=== PATIENT | female | born 1990 | race Caucasian/White ===

== ENCOUNTER 2016-11-09 10:41 | Inpatient (IN) | payer OTHER ==
[~2016-11-09] VITALS: Ht 167.6 cm; Wt 64.9 kg
[2016-11-09 11:10] VITALS: BP 107/60
[2016-11-09] MEDS ORDERED: 0.9 % SODIUM CHLORIDE 10 ML DISP.SYRIN. IV PRN ×2 (11:30→18:00)
[2016-11-09] MEDS ORDERED: LIDOCAINE 1% PF 30 ML VIAL. INJ PRN (11:30)
[2016-11-09] MEDS ORDERED: FENTANYL PF 100 MCG/2 ML VIAL. IV PRN ×2 (11:30)
[2016-11-09] MEDS ORDERED: TERBUTALINE 1 MG/ML VIAL. SQ PRN (11:30)
[2016-11-09] MEDS ORDERED: BUTORPHANOL 2 MG VIAL. IV PRN ×2 (11:30)
[2016-11-09] MEDS ORDERED: OXYTOCIN 30 UNIT/500 ML PREMIX 500 ML IV PRN ×2 (11:30→18:00)
[2016-11-09] MEDS ORDERED: PENICILLIN G K 5,000,000 UNIT in IV NORMAL SALINE 100ML 100 ML IV ONE (11:30)
[2016-11-09] MEDS: IV RINGERS,LACTATED 1000ML 1,000 ML IV SCH ×2 (11:49→13:42)
[2016-11-09 12:14] LABS: HEMATOCRIT 35.2 % (36.0-47.0); HEMOGLOBIN 11.7 g/dL (12.0-15.5); RED BLOOD COUNT 4.01 x10^6/uL (3.50-5.40); RED CELL DISTRIBUTION WIDTH 13.9 % (11.5-14.5); WHITE BLOOD COUNT 21.4 x10^3/uL (4.0-11.0)
[2016-11-09] MEDS ORDERED: PNV1TABL25 PO (12:38)
[2016-11-09 13:11] LABS: BARBITURATES NEG (NEG); BENZODIAZEPINES NEG (NEG); CANNABINOIDS NEG (NEG); COCAINE NEG (NEG); METHADONE NEG (NEG); OPIATES NEG (NEG); PHENCYCLIDINE NEG (NEG)
[2016-11-09] MEDS ORDERED: L&D EPIDURAL CASSETTE 100 ML EP ONE (13:13)
[2016-11-09] MEDS ORDERED: ROPIVacaine 0.2% IN 0.9%NACL PF 40 MG/20 ML DISP.SYRIN. ONE (13:13)
[2016-11-09 13:14] LABS: ETHANOL, URINE NEG (NEG)
[2016-11-09] MEDS ORDERED: PENICILLIN G K 2,500,000 UNIT in IV NORMAL SALINE 50ML 50 ML IV SCH (15:30)
--- NOTE | 2016-11-09 17:27 | PDOC1 ---
OB - History Hx of Present Care: Limited Care Ultrasounds: Normal mid trimester US Obstetrical Complications: None Medical Complications: None Other Concerns: non compliant and desires to adopt out Past Family/Social History * Past Medical, Surgical, Family and Obstetric Histories reviewed from chart. Rubella: Unknown RPR/VDRL: Unknown GBS Status: Unknown HBsAG: Unknown OB - Chief Complaint & HPI Date of Admission: Date of Admission: Nov 09, 2016 at 11:24 Chief Complaint/History : 3 Para: 2 EGA: 38 Reason for admission: active labor Admission Nurse Assessment Rev: Yes Problems: OB - Admission Exam Physical Exam Vitals: VS - Last 72 Hours, by Label Date Time Temp Pulse Resp B/P Pulse Ox O2 Delivery O2 Flow Rate FiO2 11/09/16 13:21 20 100 Room Air 11/09/16 12:23 20 98 Room Air 11/09/16 11:10 97.7 74 20 107/60 Room Air 97.7 HEENT: Normal Heart: Regular Rate Lungs: Clear Abdomen: Gravid, Non tender, Soft Extremities: Edema Reflexes: Normal Cervical Dilatation: 4cm Effacement: 75% Station: -2 Membranes: Intact Heart Rate: Normal Accelerations: Accelerations Present Decelerations: No decelerations Contractions on Admission: < 5 Minutes Apart Intensity: Firm Text A: 38 wks IUP GBS unknown Non compliant with PNC P: Admit for active labor. Start Pen G prophylaxis. MARISOL JOSEPH Jr, MD Nov 09, 2016 17:27
--- NOTE | 2016-11-09 17:53 | PDOC ---
VAGINAL DELIVERY DATE DATE: 11/09/16 TIME: 17:51 : 3 Para: 3 EGA: 38 VAGINAL DELIVERY: VTX VACCUM ASSISTED: No PLACENTA: Spontaneous 9/9 SEX: Male WEIGHT Weight [3010 gm ] Nuchal Cord: No Amniotic Fluid: Clear PAIN: Epidural EPISIOTOMY: No EXTENSION: No EBL 300 ml COMPLICATIONS none CONDITION pt. stable ADDITIONAL NOTES pt. stable Signs of Intrauterine Infectio: None Shoulder Dystocia: No Problems: MARISOL JOSEPH Jr, MD Nov 09, 2016 17:53
[2016-11-09] MEDS ORDERED: MAGNESIUM HYDROXIDE 2,400 MG/30 ML ORAL.SUSP. PO PRN (18:00)
[2016-11-09] MEDS ORDERED: ZOLPIDEM 5 MG TABLET. PO PRN (18:00)
[2016-11-09] MEDS ORDERED: PHENYLEPH/MINERAL OIL/PETROLAT RECTAL OINTMENT 28GM TUBE. RC PRN (18:00)
[2016-11-09] MEDS ORDERED: ACETAMINOPHEN 325 MG TABLET. PO PRN (18:00)
[2016-11-09] MEDS ORDERED: DIPHENHYDRAMINE HCL 25 MG CAPSULE PO PRN (18:00)
[2016-11-09] MEDS ORDERED: SIMETHICONE 80 MG TAB.CHEW PO PRN (18:00)
[2016-11-09] MEDS ORDERED: MAG HYDROX/AL HYDROX/SIMETH 30 ML ORAL.SUSP PO PRN (18:00)
[2016-11-09] MEDS ORDERED: HYDROCORTISONE 1% TOPICAL OINTMENT 30GM TUBE. TP PRN (18:00)
[2016-11-09] MEDS ORDERED: MMR per PROTOCOL. MC PRN (18:00)
[2016-11-09] MEDS ORDERED: BENZOCAINE 20% TOPICAL AEROSOL SPRAY 57GM CAN. TP PRN (18:00)
[2016-11-09 20:25] VITALS: BP 110/64
[2016-11-09 21:15] VITALS: BP 107/61
[2016-11-09] MEDS: DOCUSATE SODIUM 100 MG CAPSULE PO PRN (21:37)
[2016-11-09] MEDS: IBUPROFEN 600 MG TABLET. PO PRN (21:37)
[2016-11-10 01:20] VITALS: BP 99/53
[2016-11-10 04:45] VITALS: BP 94/50
[2016-11-10] MEDS: IBUPROFEN 600 MG TABLET. PO PRN (04:51)
[2016-11-10 06:09] LABS: BASO # 0.1 x10^3/uL (0.0-0.2); BASO % 0 % (0-3); EOS % 1 % (0-3); HEMOGLOBIN 11.1 g/dL (12.0-15.5); LYMPH # 3.9 x10^3/uL (1.0-4.8); LYMPH % 12 % (24-48); MEAN CORPUSCULAR HEMOGLOBIN 29 pg (25-35); MEAN CORPUSCULAR HGB CONC 34 g/dL (31-37); MEAN CORPUSCULAR VOLUME 87 fL (79-100); MONO % 4 % (0-9); NEUT % 82 % (31-73); PLATELET COUNT 243 x10^3/uL (140-400); RED CELL DISTRIBUTION WIDTH 13.8 % (11.5-14.5); WHITE BLOOD COUNT 31.8 x10^3/uL (4.0-11.0)
--- NOTE | 2016-11-10 07:58 | PDOC ---
OB Progress Note Date of Service 11/10/16 Time of Evaluation 0755 Notes Pt. feeling well. Pain controlled. Lochia minimal. Bottle feeding. Pt. unsure about adoption at this time. Lab Laboratory Tests Test 11/09/16 12:00 11/10/16 05:30 White Blood Count 21.4x10^3/uL (4.0-11.0) 31.8x10^3/uL (4.0-11.0) Red Blood Count 4.01x10^6/uL (3.50-5.40) 3.80x10^6/uL (3.50-5.40) Hemoglobin 11.7g/dL (12.0-15.5) 11.1g/dL (12.0-15.5) Hematocrit 35.2% (36.0-47.0) 33.0% (36.0-47.0) Mean Corpuscular Volume 88fL (79-100) 87fL (79-100) Mean Corpuscular Hemoglobin 29pg (25-35) 29pg (25-35) Mean Corpuscular Hemoglobin Concent 33g/dL (31-37) 34g/dL (31-37) Red Cell Distribution Width 13.9% (11.5-14.5) 13.8% (11.5-14.5) Platelet Count 237x10^3/uL (140-400) 243x10^3/uL (140-400) Urine Opiates Screen Neg (NEG) Urine Methadone Screen Neg (NEG) Urine Barbiturates Neg (NEG) Urine Phencyclidine Screen Neg (NEG) Urine Amphetamine/Methamphetamine Neg (NEG) Urine Benzodiazepines Screen Neg (NEG) Urine Cocaine Screen Neg (NEG) Urine Cannabinoids Screen Neg (NEG) Urine Ethyl Alcohol Neg (NEG) RPR Titer Additional Testing Non reactive (Non Reactive) Neutrophils (%) (Auto) 82% (31-73) Lymphocytes (%) (Auto) 12% (24-48) Monocytes (%) (Auto) 4% (0-9) Eosinophils (%) (Auto) 1% (0-3) Basophils (%) (Auto) 0% (0-3) Neutrophils # (Auto) 26.2x10^3uL (1.8-7.7) Lymphocytes # (Auto) 3.9x10^3/uL (1.0-4.8) Monocytes # (Auto) 1.4x10^3/uL (0.0-1.1) Eosinophils # (Auto) 0.3x10^3/uL (0.0-0.7) Basophils # (Auto) 0.1x10^3/uL (0.0-0.2) Laboratory Tests Test 11/09/16 12:00 11/10/16 05:30 White Blood Count 21.4x10^3/uL (4.0-11.0) 31.8x10^3/uL (4.0-11.0) Red Blood Count 4.01x10^6/uL (3.50-5.40) 3.80x10^6/uL (3.50-5.40) Hemoglobin 11.7g/dL (12.0-15.5) 11.1g/dL (12.0-15.5) Hematocrit 35.2% (36.0-47.0) 33.0% (36.0-47.0) Mean Corpuscular Volume 88fL (79-100) 87fL (79-100) Mean Corpuscular Hemoglobin 29pg (25-35) 29pg (25-35) Mean Corpuscular Hemoglobin Concent 33g/dL (31-37) 34g/dL (31-37) Red Cell Distribution Width 13.9% (11.5-14.5) 13.8% (11.5-14.5) Platelet Count 237x10^3/uL (140-400) 243x10^3/uL (140-400) Urine Opiates Screen Neg (NEG) Urine Methadone Screen Neg (NEG) Urine Barbiturates Neg (NEG) Urine Phencyclidine Screen Neg (NEG) Urine Amphetamine/Methamphetamine Neg (NEG) Urine Benzodiazepines Screen Neg (NEG) Urine Cocaine Screen Neg (NEG) Urine Cannabinoids Screen Neg (NEG) Urine Ethyl Alcohol Neg (NEG) RPR Titer Additional Testing Non reactive (Non Reactive) Neutrophils (%) (Auto) 82% (31-73) Lymphocytes (%) (Auto) 12% (24-48) Monocytes (%) (Auto) 4% (0-9) Eosinophils (%) (Auto) 1% (0-3) Basophils (%) (Auto) 0% (0-3) Neutrophils # (Auto) 26.2x10^3uL (1.8-7.7) Lymphocytes # (Auto) 3.9x10^3/uL (1.0-4.8) Monocytes # (Auto) 1.4x10^3/uL (0.0-1.1) Eosinophils # (Auto) 0.3x10^3/uL (0.0-0.7) Basophils # (Auto) 0.1x10^3/uL (0.0-0.2) Medications Current Medications Sodium Chloride 3 ml 3 ml QSHIFT PRN IV AFTER MEDS AND BLOOD DRAWS; Start 11/09 at 11:30 Lactated Ringer's (Iv Lactated Ringers) 1,000 ml @ 125 mls/hr Q8H IV Last administered on 11/09/16 13:42; Start 11/09/16 at 11:19 Butorphanol Tartrate (Stadol) 1 mg PRN Q1HR PRN IV mild to moderate labor pain ; Start 11/09/16 at 11:30 Butorphanol Tartrate (Stadol) 2 mg PRN Q1HR PRN IV Severe labor pain; Start at 11:30 Fentanyl Citrate (Fentanyl 2ml Vial) 50 mcg PRN Q30MIN PRN IV Mild to moderate pain Last administered on 11/09/16 12:23; Start 11/09/16 at 11:30 Fentanyl Citrate (Fentanyl 2ml Vial) 100 mcg PRN Q30MIN PRN IV Severe pain; Start 11/09/16 at 11:30 Terbutaline Sulfate (Brethine) 0.25 mg 1X PRN PRN SQ SEE COMMENTS; Start at 11:30; Stop 11/10/16 at 11:29 Lidocaine HCl 30 ml 30 ml 1X PRN PRN INJ SEE COMMENTS; Start 11/09/16 at 11:30 ; Stop 11/11/16 at 11:29 Oxytocin/Sodium Chloride (Oxytocin Premix Infusion) 500 ml @ 0 mls/hr CONT PRN PRN IV Post delivery bleeding; Start 11/09/16 at 11:30 Ibuprofen 600 mg 600 mg PRN Q6HRS PRN PO PAIN Last administered on 11/10/16 04 :51; Start 11/09/16 at 11:30 Penicillin G Potassium [id number] unit/Sodium Chloride 100 ml @ 100 mls/hr 1X ONCE IV Last administered on 11/09/16 11:48; Start 11/09/16 at 11:30; Stop at 12:29; Status DC Penicillin G Potassium [id number] unit/Sodium Chloride 50 ml @ 100 mls/hr Q4H IV Last administered on 11/09/16 16:04; Start 11/09/16 at 15:30; Stop 11/10/16 at 04:49; Status DC Ropivacaine/ Fentanyl/NS (Fjobclwr-Qazxa-CN 3 Mcg-0.1%) 100 ml @ As Directed STK-MED ONCE EP Last administered on 11/09/16 13:21; Start 11/09/16 at 13:13; Stop 11/09/16 at 13:14; Status DC Ropivacaine 40 mg STK-MED ONCE .ROUTE Last administered on 11/09/16 13:20; Start 11/09/16 at 13:13; Stop 11/09/16 at 13:14; Status DC Sodium Chloride 10 ml 10 ml QSHIFT PRN IV AFTER MEDS AND BLOOD DRAWS Last administered on 11/10/16 04:52; Start 11/09/16 at 18:00 Oxytocin/Sodium Chloride (Oxytocin Premix Infusion) 500 ml @ 62.5 mls/hr CONT PRN IV SEE I/O RECORD; Start 11/09/16 at 18:00; Stop 11/10/16 at 01:59; Status DC Acetaminophen (Tylenol) 650 mg PRN Q6HRS PRN PO MILD PAIN / TEMP; Start at 18:00 Ibuprofen (Motrin) 800 mg PRN Q8HRS PRN PO INFLAMMATION/PAIN PREVENTION; Start 11/09/16 at 18:00 Docusate Sodium (Colace) 100 mg PRN BID PRN PO CONSTIPATION Last administered on 11/09/16 21:37; Start 11/09/16 at 18:00 Magnesium Hydroxide (Milk Of Magnesia) 2,400 mg PRN DAILY PRN PO CONSTIPATION; Start 11/09/16 at 18:00 Al Hydroxide/Mg Hydroxide (Mylanta Plus Xs) 30 ml PRN Q4HRS PRN PO HEARTBURN / GAS; Start 11/09/16 at 18:00 Simethicone (Gas-X) 80 mg PRN AFTMEALHC PRN PO GAS / BLOATING; Start 11/09/16 at 18:00 Diphenhydramine HCl (Benadryl) 25 mg PRN Q6HRS PRN PO ITCHING; Start 11/09/16 at 18:00 Benzocaine (Americaine) 1 spray PRN QID PRN TP TOPICAL PAIN; Start 11/09/16 at 18:00 Phenyleph/Shark Oil/Min Oil/Petrol (Preparation H) 1 erin PRN QID PRN RC RECTAL PAIN; Start 11/09/16 at 18:00 Hydrocortisone (Cortaid) 1 erin PRN QID PRN TP PERINEAL PAIN; Start 11/09/16 at 18:00 Ferrous Sulfate (Feosol) 325 mg BIDWMEALS PO ; Start 11/10/16 at 08:00 Zolpidem Tartrate (Ambien) 5 mg PRN QHS PRN PO INSOMNIA, MAY REPEAT X1; Start 11/09/16 at 18:00 Info (Do NOT chart on this placeholder) 1 ea 1X PRN PRN MC SEE COMMENTS; Start 11/09/16 at 18:00 Info (Do NOT chart on this placeholder) 1 ea 1X PRN PRN MC SEE COMMENTS; Start 11/09/16 at 18:00 Oxycodone/ Acetaminophen (Percocet 5/325) 2 tab PRN Q4HRS PRN PO MODERATE PAIN , SEVERE PAIN; Start 11/09/16 at 18:00 Active Scripts Active Reported Tablet (Pnv Cmb#95/Ferrous Fumarate/Fa) 1 Each Tablet 1 Tab PO DAILY Exam Abd: soft, non tender, fundus firm Assessment PPD#1 s/p Plan of Care: Continue current Tx, Mgmt MARISOL JOSEPH Jr, MD Nov 10, 2016 07:58
[2016-11-10] MEDS ORDERED: FERROUS SULFATE 325 MG TABLET PO SCH (08:00)
[2016-11-10] MEDS: DOCUSATE SODIUM 100 MG CAPSULE PO PRN ×2 (09:04→21:29)
[2016-11-10] MEDS: OXYCODONE/APAP 5/325 TABLET. PO PRN ×2 (09:04→21:29)
[2016-11-10 09:59] LABS: PLT ESTIMATE ADEQUATE (ADEQUATE)
[2016-11-10 10:02] LABS: ANISOCYTOSIS SLIGHT
[2016-11-10 11:05] VITALS: BP 99/50
[2016-11-10] MEDS: IBUPROFEN 800 MG TABLET. PO PRN (15:13)
[2016-11-10 15:20] VITALS: BP 94/53
[2016-11-10 18:09] VITALS: BP 99/52
[2016-11-10 21:25] VITALS: BP 95/60
[2016-11-11 05:25] VITALS: BP 96/51
[2016-11-11] MEDS: IBUPROFEN 800 MG TABLET. PO PRN ×2 (05:49→15:36)
[2016-11-11 12:37] VITALS: BP 96/55
--- NOTE | 2016-11-11 14:26 | PDOC ---
OB Progress Note Date of Service 11/11/16 Time of Evaluation 1425 Notes Pt. feeling well. No complaints. Lab Laboratory Tests Test 11/10/16 05:30 White Blood Count 31.8x10^3/uL (4.0-11.0) Red Blood Count 3.80x10^6/uL (3.50-5.40) Hemoglobin 11.1g/dL (12.0-15.5) Hematocrit 33.0% (36.0-47.0) Mean Corpuscular Volume 87fL (79-100) Mean Corpuscular Hemoglobin 29pg (25-35) Mean Corpuscular Hemoglobin Concent 34g/dL (31-37) Red Cell Distribution Width 13.8% (11.5-14.5) Platelet Count 243x10^3/uL (140-400) Neutrophils (%) (Auto) 82% (31-73) Lymphocytes (%) (Auto) 12% (24-48) Monocytes (%) (Auto) 4% (0-9) Eosinophils (%) (Auto) 1% (0-3) Basophils (%) (Auto) 0% (0-3) Neutrophils # (Auto) 26.2x10^3uL (1.8-7.7) Lymphocytes # (Auto) 3.9x10^3/uL (1.0-4.8) Monocytes # (Auto) 1.4x10^3/uL (0.0-1.1) Eosinophils # (Auto) 0.3x10^3/uL (0.0-0.7) Basophils # (Auto) 0.1x10^3/uL (0.0-0.2) Segmented Neutrophils % 87% (35-66) Lymphocytes % 11% (24-48) Monocytes % 2% (0-10) Platelet Estimate Adequate (ADEQUATE) Anisocytosis Slight Medications Current Medications Sodium Chloride 3 ml 3 ml QSHIFT PRN IV AFTER MEDS AND BLOOD DRAWS; Start 11/09 at 11:30 Lactated Ringer's (Iv Lactated Ringers) 1,000 ml @ 125 mls/hr Q8H IV Last administered on 11/09/16t 13:42; Start 11/09/16 at 11:19 Butorphanol Tartrate (Stadol) 1 mg PRN Q1HR PRN IV mild to moderate labor pain ; Start 11/09/16 at 11:30 Butorphanol Tartrate (Stadol) 2 mg PRN Q1HR PRN IV Severe labor pain; Start at 11:30 Fentanyl Citrate (Fentanyl 2ml Vial) 50 mcg PRN Q30MIN PRN IV Mild to moderate pain Last administered on 11/09/16 12:23; Start 11/09/16 at 11:30 Fentanyl Citrate (Fentanyl 2ml Vial) 100 mcg PRN Q30MIN PRN IV Severe pain; Start 11/09/16 at 11:30 Terbutaline Sulfate (Brethine) 0.25 mg 1X PRN PRN SQ SEE COMMENTS; Start at 11:30; Stop 11/10/16 at 11:29; Status DC Lidocaine HCl 30 ml 30 ml 1X PRN PRN INJ SEE COMMENTS; Start 11/09/16 at 11:30 ; Stop 11/11/16 at 11:29; Status DC Oxytocin/Sodium Chloride (Oxytocin Premix Infusion) 500 ml @ 0 mls/hr CONT PRN PRN IV Post delivery bleeding; Start 11/09/16 at 11:30 Ibuprofen 600 mg 600 mg PRN Q6HRS PRN PO PAIN Last administered on 11/10/16 04 :51; Start 11/09/16 at 11:30 Penicillin G Potassium [id number] unit/Sodium Chloride 100 ml @ 100 mls/hr 1X ONCE IV Last administered on 11/09/16 11:48; Start 11/09/16 at 11:30; Stop at 12:29; Status DC Penicillin G Potassium [id number] unit/Sodium Chloride 50 ml @ 100 mls/hr Q4H IV Last administered on 11/09/16 16:04; Start 11/09/16 at 15:30; Stop 11/10/16 at 04:49; Status DC Ropivacaine/ Fentanyl/NS (Gtjmixkg-Awjau-MQ 3 Mcg-0.1%) 100 ml @ As Directed STK-MED ONCE EP Last administered on 11/09/16 13:21; Start 11/09/16 at 13:13; Stop 11/09/16 at 13:14; Status DC Ropivacaine 40 mg STK-MED ONCE .ROUTE Last administered on 11/09/16 13:20; Start 11/09/16 at 13:13; Stop 11/09/16 at 13:14; Status DC Sodium Chloride 10 ml 10 ml QSHIFT PRN IV AFTER MEDS AND BLOOD DRAWS Last administered on 11/10/16 04:52; Start 11/09/16 at 18:00 Oxytocin/Sodium Chloride (Oxytocin Premix Infusion) 500 ml @ 62.5 mls/hr CONT PRN IV SEE I/O RECORD; Start 11/09/16 at 18:00; Stop 11/10/16 at 01:59; Status DC Acetaminophen (Tylenol) 650 mg PRN Q6HRS PRN PO MILD PAIN / TEMP; Start at 18:00 Ibuprofen (Motrin) 800 mg PRN Q8HRS PRN PO INFLAMMATION/PAIN PREVENTION Last administered on 11/11/16 05:49; Start 11/09/16 at 18:00 Docusate Sodium (Colace) 100 mg PRN BID PRN PO CONSTIPATION Last administered on 11/10/16 21:29; Start 11/09/16 at 18:00 Magnesium Hydroxide (Milk Of Magnesia) 2,400 mg PRN DAILY PRN PO CONSTIPATION; Start 11/09/16 at 18:00 Al Hydroxide/Mg Hydroxide (Mylanta Plus Xs) 30 ml PRN Q4HRS PRN PO HEARTBURN / GAS; Start 11/09/16 at 18:00 Simethicone (Gas-X) 80 mg PRN AFTMEALHC PRN PO GAS / BLOATING Last administered on 11/10/16 21:29; Start 11/09/16 at 18:00 Diphenhydramine HCl (Benadryl) 25 mg PRN Q6HRS PRN PO ITCHING; Start 11/09/16 at 18:00 Benzocaine (Americaine) 1 spray PRN QID PRN TP TOPICAL PAIN; Start 11/09/16 at 18:00 Phenyleph/Shark Oil/Min Oil/Petrol (Preparation H) 1 erin PRN QID PRN RC RECTAL PAIN; Start 11/09/16 at 18:00 Hydrocortisone (Cortaid) 1 erin PRN QID PRN TP PERINEAL PAIN; Start 11/09/16 at 18:00 Ferrous Sulfate (Feosol) 325 mg BIDWMEALS PO Last administered on 11/10/16 08: 00; Start 11/10/16 at 08:00 Zolpidem Tartrate (Ambien) 5 mg PRN QHS PRN PO INSOMNIA, MAY REPEAT X1; Start 11/09/16 at 18:00 Info (Do NOT chart on this placeholder) 1 ea 1X PRN PRN MC SEE COMMENTS; Start 11/09/16 at 18:00 Info (Do NOT chart on this placeholder) 1 ea 1X PRN PRN MC SEE COMMENTS; Start 11/09/16 at 18:00 Oxycodone/ Acetaminophen (Percocet 5/325) 2 tab PRN Q4HRS PRN PO MODERATE PAIN , SEVERE PAIN Last administered on 11/10/16t 21:29; Start 11/09/16 at 18:00 Active Scripts Active Reported Tablet (Pnv Cmb#95/Ferrous Fumarate/Fa) 1 Each Tablet 1 Tab PO DAILY Exam Abd: soft, non tender, fundus firm Assessment PPD#2 s/p Plan of Care: See new orders (D/ c home.) MARISOL JOSEPH Jr, MD Nov 11, 2016 14:26
[2016-11-11] MEDS ORDERED: IBUP-1060 PO (14:27)
--- NOTE | 2016-11-11 14:27 | DISCH ---
DISCHARGE INSTRUCTIONS Condition on Discharge Condition on Discharge: Stable Activity After Discharge Activity Instructions for Disc: Activity as tolerated Lifting Instructions after Dis: No heavy lifting Driving Instructions after Dis: Do not drive today Diet after Discharge Diet after Discharge: Regular Contacting the DRJhony after DC Call your doctor for: Concerns you may have Follow-Up Follow up with: Dr. Valdez in 6 weeks. MARISOL VALDEZ Jr, MD Nov 11, 2016 14:27
[2016-11-11 17:00] VITALS: BP 95/50
[2016-11-11] MEDS: OXYCODONE/APAP 5/325 TABLET. PO PRN (17:15)
[2016-11-11] MEDS: DOCUSATE SODIUM 100 MG CAPSULE PO PRN (17:23)
== END 2016-11-11 18:59 | disposition home or self-care (01) | DRG 775 ==
LOC: 3 SO LND 10:41 → OBSVTOIN 11:24 → EEVIPCON 11:24 → 3 NORTH 21:15
PROVIDERS: ADMIT Obstetrics & Gynecology; ATTEND Obstetrics & Gynecology
PROC: 10E0XZZ Delivery of Products of Conception, External Approach (ICD-10-PCS; principal; 2016-11-09)
PROC: 3E0S3CZ (ICD-10-PCS; 2016-11-09)
PROC: 00HU33Z Insertion of Infusion Device into Spinal Canal, Percutaneous Approach (ICD-10-PCS; 2016-11-09)
DX: O80 Encounter for full-term uncomplicated delivery (principal); Z3A.38 38 weeks gestation of pregnancy; Z37.0 Single live birth; Z91.19 Patient's noncompliance with other medical treatment and regimen
CPT/HCPCS: 36415; 85007; 85027; 86593; 86850; 86900; 86901; G0379; G0481; J2540; J2795; J3010; J7120

== ENCOUNTER 2019-08-11 18:12 | Emergency (ER) | payer SELFPAY ==
[~2019-08-11] VITALS: Ht 167.6 cm; Wt 63.5 kg
[~2019-08-11 18:12] MED LIST: IBUP-1060 PO; PNV1TABL25 PO
[2019-08-11 18:55] VITALS: BP 114/65
--- NOTE | 2019-08-11 19:22 | PHYS DOC ---
Past Medical History Past Medical History: Anemia, Asthma Additional Past Medical Histor: Mood Disorder Past Surgical History: No Surgical History Smoking: Cigarettes, Less than 1pk/day Alcohol Use: Occasionally Drug Use: None Adult General Chief Complaint Chief Complaint: ANKLE PROBLEM HPI HPI Patient is a 29 year old female who presents to the emergency department with complaints of left ankle pain for the last 2 weeks. Patient denies any known injury. She currently rates pain a 6 out of 10 on the pain scale, the pain increases with certain movements and position changes. She denies any numbness, tingling, or weakness. Review of Systems Review of Systems Constitutional: Denies fever or chills [] Musculoskeletal: See history of present illness Integument: Denies rash, bruising, or skin lesions [] Neurologic: Denies headache, focal weakness or sensory changes [] Complete systems were reviewed and found to be within normal limits, except as documented in this note. Allergies Allergies Allergies Coded Allergies Type Severity Reaction Last Updated Verified No Known Drug Allergies 06/21/14 No Physical Exam Physical Exam Constitutional: Well developed, well nourished, no acute distress, non-toxic appearance. [] HENT: Normocephalic, atraumatic, bilateral external ears normal, nose normal. [] Eyes: PERRLA, EOMI, conjunctiva normal, no discharge. [] Neck: Normal range of motion, no stridor. [] Cardiovascular:Heart rate regular rhythm Lungs & Thorax: Respirations even and unlabored, no retractions, no respiratory distress Skin: Warm, dry, no erythema, no rash, no bruising. [] Extremities: L ankle: No bony TTP, no obvious deformity, no cyanosis, no clubbing, ROM limited due to pain, no edema. [] Neurologic: Alert and oriented X 3, normal motor function, normal sensory fun ction, no focal deficits noted. [] Psychologic: Affect normal, judgement normal, mood normal. [] Current Patient Data Vital Signs Vital Signs Date Time Temp Pulse Resp B/P (MAP) Pulse Ox O2 Delivery O2 Flow Rate FiO2 08/11/19 18:55 98.5 85 18 114/65 (81) 98 Room Air 98.5 Lab Values Laboratory Tests Test 08/11/19 21:24 POC Urine HCG, Qualitative Hcg negative (Negative) EKG EKG [] Radiology/Procedures Radiology/Procedures PROCEDURE: ANKLE LEFT 3V Exam: Ankle 3 views INDICATION: Left ankle pain TECHNIQUE: Frontal, lateral and oblique views of the left ankle Comparisons: None FINDINGS: Bone mineralization is normal. No acute or healed fractures. Soft tissues are unremarkable. Joint spaces are well-maintained. IMPRESSION: No acute osseous abnormality.[] Course & Med Decision Making Course & Med Decision Making Pertinent Labs and Imaging studies reviewed. (See chart for details) [] Dragon Disclaimer Dragon Disclaimer This electronic medical record was generated, in whole or in part, using a voice recognition dictation system. Departure Departure Impression: Primary Impression: Left ankle pain Disposition: HOME, SELF-CARE Condition: STABLE Referrals: NO PCP (PCP) Patient Instructions: Ankle Pain Additional Instructions: Tylenol or ibuprofen as needed for pain. Follow up with your primary care doctor if symptoms persist, wear the gustabo wrap as needed for comfort. Return to the ER if symptoms worsen. Splinting Splinting : Location: L ankle Pre-Proc Neuro Vasc Exam: normal Post-Proc Neuro Vasc Exam: normal, unchanged from pre-exam Progress An gustabo wrap was applied to the left ankle Problem Qualifiers Primary Impression: Left ankle pain Chronicity: acute Qualified Codes: M25.572 - Pain in left ankle and joints of left foot C[employer] Aug 11, 2019 19:22
--- NOTE | 2019-08-11 22:54 | RAD ---
Exam: Ankle 3 views INDICATION: Left ankle pain TECHNIQUE: Frontal, lateral and oblique views of the left ankle Comparisons: None FINDINGS: Bone mineralization is normal. No acute or healed fractures. Soft tissues are unremarkable. Joint spaces are well-maintained. IMPRESSION: No acute osseous abnormality. Electronically signed by: Anuradha Colvin MD (08/11/2019 10:51 PM) [facility]
== END 2019-08-11 23:00 | disposition home or self-care (01) ==
LOC: ER 18:12
DX: M25.572 Pain in left ankle and joints of left foot (principal); J45.909 Unspecified asthma, uncomplicated; F17.210 Nicotine dependence, cigarettes, uncomplicated
CPT/HCPCS: 73610; 81025; 99284; 99285-25

== ENCOUNTER 2019-08-30 13:01 | Emergency (ER) | payer SELFPAY ==
[~2019-08-30] VITALS: Ht 167.6 cm; Wt 63.5 kg
[2019-08-30] MEDS ORDERED: IV NORMAL SALINE 1000ML BAG 1,000 ML IV SCH (13:51)
[2019-08-30] MEDS ORDERED: ONDANSETRON PF 4 MG/2 ML VIAL. IV ONE (14:00)
[2019-08-30 14:11] LABS: BASO # 0.1 x10^3/uL (0.0-0.2); BASO % 1 % (0-3); EOS # 0.8 x10^3/uL (0.0-0.7); EOS % 8 % (0-3); HEMATOCRIT 43.7 % (36.0-47.0); LYMPH # 1.7 x10^3/uL (1.0-4.8); LYMPH % 17 % (24-48); MEAN CORPUSCULAR HEMOGLOBIN 29 pg (25-35); MEAN CORPUSCULAR HGB CONC 34 g/dL (31-37); MEAN CORPUSCULAR VOLUME 86 fL (79-100); MONO # 0.6 x10^3/uL (0.0-1.1); MONO % 6 % (0-9); NEUT # 6.9 x10^3/uL (1.8-7.7); NEUT % 68 % (31-73); PLATELET COUNT 334 x10^3/uL (140-400); RED BLOOD COUNT 5.11 x10^6/uL (3.50-5.40); RED CELL DISTRIBUTION WIDTH 13.8 % (11.5-14.5); WHITE BLOOD COUNT 10.1 x10^3/uL (4.0-11.0)
[2019-08-30 14:25] LABS: CALCIUM 9.2 mg/dL (8.5-10.1); CREATININE 0.9 mg/dL (0.6-1.0)
[2019-08-30 14:26] LABS: POTASSIUM 4.3 mmol/L (3.5-5.1)
[2019-08-30 14:53] LABS: ALBUMIN 4.2 g/dL (3.4-5.0); ALBUMIN/GLOBULIN RATIO 1.2 (1.0-1.7); TOTAL BILIRUBIN 0.4 mg/dL (0.2-1.0); TOTAL PROTEIN 7.8 g/dL (6.4-8.2)
[2019-08-30] MEDS ORDERED: LOPERAMIDE 2 MG CAPSULE PO STA (14:56)
[2019-08-30 15:00] VITALS: BP 113/74
[2019-08-30] MEDS ORDERED: ONDA4TAB7 PO (15:07)
--- NOTE | 2019-08-30 15:11 | PHYS DOC ---
Past Medical History Past Medical History: Anemia, Asthma Additional Past Medical Histor: Mood Disorder Past Surgical History: No Surgical History Alcohol Use: Occasionally Drug Use: Methamphetamine Adult General Chief Complaint Chief Complaint: NAUSEA/VOMITING/DIARRHA HPI HPI Patient is a 29 year old female with history of ADD who presents by EMS with complaint of nausea and diarrhea. Patient complaining of constant nausea and frequent episodes of nonbloody diarrhea since yesterday without abdominal pain, fever and chills, sick contact. Patient states she thinks she had the bad food. Patient states she was not able to eat and having a urine output since yesterday. Patient had recent visit to [facility] for mental condition. She denies , suicidal or homicidal ideation, hallucination. Review of Systems Review of Systems Constitutional: Denies fever or chills [] Eyes: Denies change in visual acuity, redness, or eye pain [] HENT: Denies nasal congestion or sore throat [] Respiratory: Denies cough or shortness of breath [] Cardiovascular: No additional information not addressed in HPI [] GI: Denies abdominal pain, vomiting, bloody stools, reports nausea and diarrhea [] : Denies dysuria or hematuria [] Musculoskeletal: Denies back pain or joint pain [] Integument: Denies rash or skin lesions [] Neurologic: Denies headache, focal weakness or sensory changes [] Endocrine: Denies polyuria or polydipsia [] All other systems were reviewed and found to be within normal limits, except as documented in this note. Current Medications Current Medications Current Medications Medications (Trade) Dose Ordered Sig/Cholo Start Time Stop Time Status Last Admin Dose Admin Loperamide HCl (Imodium) 2 mg 1X STAT 08/30/19 14:56 08/30/19 14:59 DC 08/30/19 15:05 2 MG Ondansetron HCl (Zofran) 4 mg 1X ONCE 08/30/19 14:00 08/30/19 14:01 DC 08/30/19 14:18 4 MG Sodium Chloride 1,000 ml @ 1,000 mls/hr Q1H 08/30/19 13:51 08/30/19 14:50 DC 08/30/19 14:18 1,000 MLS/HR Allergies Allergies Allergies Coded Allergies Type Severity Reaction Last Updated Verified No Known Drug Allergies 06/21/14 No Physical Exam Physical Exam Constitutional: Well nourished, no acute distress, non-toxic appearance. [] HENT: Normocephalic, atraumatic, bilateral external ears normal, oropharynx moist, no oral exudates, nose normal. [] Eyes: PERRLA, EOMI, conjunctiva normal, no discharge. [] Neck: Normal range of motion, no tenderness, supple, no stridor. [] Cardiovascular:Heart rate regular rhythm, no murmur [] Lungs & Thorax: Bilateral breath sounds clear to auscultation [] Abdomen: Bowel sounds normal, soft, no tenderness, no masses, no pulsatile masses. [] Skin: Warm, dry, no erythema, no rash. [] Back: No tenderness, no CVA tenderness. [] Extremities: No tenderness, no cyanosis, no clubbing, ROM intact, no edema. [] Neurologic: Alert and oriented X 3, normal motor function, normal sensory function, no focal deficits noted. [] Psychologic: Affect anxious, mood normal. [] Current Patient Data Vital Signs Vital Signs Date Time Temp Pulse Resp B/P (MAP) Pulse Ox O2 Delivery O2 Flow Rate FiO2 08/30/19 15:00 79 15 113/74 (87) 99 Room Air 08/30/19 13:02 98.1 98.1 Lab Values Laboratory Tests Test 08/30/19 13:55 White Blood Count 10.1 x10^3/uL (4.0-11.0) Red Blood Count 5.11 x10^6/uL (3.50-5.40) Hemoglobin 15.0 g/dL (12.0-15.5) Hematocrit 43.7 % (36.0-47.0) Mean Corpuscular Volume 86 fL (79-100) Mean Corpuscular Hemoglobin 29 pg (25-35) Mean Corpuscular Hemoglobin Concent 34 g/dL (31-37) Red Cell Distribution Width 13.8 % (11.5-14.5) Platelet Count 334 x10^3/uL (140-400) Neutrophils (%) (Auto) 68 % (31-73) Lymphocytes (%) (Auto) 17 % (24-48) L Monocytes (%) (Auto) 6 % (0-9) Eosinophils (%) (Auto) 8 % (0-3) H Basophils (%) (Auto) 1 % (0-3) Neutrophils # (Auto) 6.9 x10^3/uL (1.8-7.7) Lymphocytes # (Auto) 1.7 x10^3/uL (1.0-4.8) Monocytes # (Auto) 0.6 x10^3/uL (0.0-1.1) Eosinophils # (Auto) 0.8 x10^3/uL (0.0-0.7) H Basophils # (Auto) 0.1 x10^3/uL (0.0-0.2) Sodium Level 144 mmol/L (136-145) Potassium Level 4.3 mmol/L (3.5-5.1) Chloride Level 106 mmol/L (98-107) Carbon Dioxide Level 26 mmol/L (21-32) Anion Gap 12 (6-14) Blood Urea Nitrogen 8 mg/dL (7-20) Creatinine 0.9 mg/dL (0.6-1.0) Estimated GFR (Cockcroft-Gault) 73.0 BUN/Creatinine Ratio 9 (6-20) Glucose Level 83 mg/dL (70-99) Calcium Level 9.2 mg/dL (8.5-10.1) Total Bilirubin 0.4 mg/dL (0.2-1.0) Aspartate Amino Transferase (AST) 14 U/L (15-37) L Alanine Aminotransferase (ALT) 29 U/L (14-59) Alkaline Phosphatase 120 U/L (46-116) H Total Protein 7.8 g/dL (6.4-8.2) Albumin 4.2 g/dL (3.4-5.0) Albumin/Globulin Ratio 1.2 (1.0-1.7) Lipase 114 U/L (73-393) Laboratory Tests 08/30/19 13:55 Laboratory Tests 08/30/19 13:55 EKG EKG [] Radiology/Procedures Radiology/Procedures [] Course & Med Decision Making Course & Med Decision Making Pertinent Labs reviewed. (See chart for details) Evaluation of patient in ER showed 29-year-old female patient brought in by EMS with complaining of nausea and diarrhea since yesterday. Patient had unremarkable physical exam. Complaining of frequent episodes of diarrhea. Patient treated with IV fluid and Zofran. Patient did not have bowel movement while she was in ER. Labs was unremarkable without sign of dehydration or electrolyte problem. Patient refused to give a urine sample. Plan to discharge patient home with diagnosis of viral gastroenteritis. Dragon Disclaimer Dragon Disclaimer This electronic medical record was generated, in whole or in part, using a voice recognition dictation system. Departure Departure Impression: Primary Impression: Viral gastroenteritis Disposition: HOME, SELF-CARE (at 1504) Condition: STABLE Referrals: PIPPA BRAVO (PCP) Patient Instructions: Diet for Diarrhea, Adult, Viral Gastroenteritis Additional Instructions: Drink plenty of liquids Follow-up with your primary care physician in 3-5 days Return to ER if not getting better May take [id number] Imodium as needed for diarrhea Do not eat solid foods today Scripts Ondansetron Hcl (ZOFRAN) 4 Mg Tablet 1 TAB PO PRN Q6-8HRS for nausea, #12 TAB Prov: ANDREA CASTRO MD 08/30/19 ANDREA CASTRO MD Aug 30, 2019 15:11
== END 2019-08-30 15:35 | disposition home or self-care (01) ==
LOC: ER 13:01
DX: A08.4 Viral intestinal infection, unspecified (principal); J45.909 Unspecified asthma, uncomplicated; F39 Unspecified mood [affective] disorder; Z86.2 Personal history of diseases of the blood and blood-forming organs and certain disorders involving the immune mechanism
CPT/HCPCS: 36415; 80053; 83690; 85025; 96361; 96374; 99284; J2405; J7030

== ENCOUNTER 2021-10-05 10:18 | Emergency (ER) | payer SELFPAY ==
[~2021-10-05 10:18] MED LIST changes: +ONDA4TAB7 PO
--- NOTE | 2021-10-05 11:00 | PHYS DOC ---
Past Medical History Past Medical History: Anemia, Asthma Additional Past Medical Histor: Mood Disorder Past Surgical History: No Surgical History Smoking Status: Current Every Day Smoker Alcohol Use: Occasionally Drug Use: Methamphetamine General Adult EDM: Chief Complaint: SORE THROAT HPI: HPI: Patient is a 31 year old female who presents with EMS with a sore throat. Patient is agitated and screaming at staff. " I have strep throat. I need some flecking antibiotics!" "On not answering any questions I just need some antibiotics!" "I'm a sick patient!" Screaming "I can't even talk" in clear voice. Review of Systems: Review of Systems: Unable to obtain due to patient agitation Heart Score: C/O Chest Pain: N/A Allergies: Allergies: Allergies Coded Allergies Type Severity Reaction Last Updated Verified No Known Drug Allergies 06/21/14 No Physical Exam: PE: Constitutional: Agitated, screaming at staff HENT: No hoarseness, normal phonation, No external signs of swelling around the face or neck. Neck: patient ranging neck spontaneously Lungs & Thorax: Normal work of breathing Skin: no pallor or jaundice Neurologic: Alert, speech normal, face symmetric, moving all extremities with normal strength and coordination. Normal gait. EKG: EKG: [] Radiology/Procedures: Radiology/Procedures: [] Course & Med Decision Making: Course & Med Decision Making Pertinent Labs and Imaging studies reviewed. (See chart for details) Patient 31-year-old female who presented with EMS complaining of sore throat. She was exceedingly agitated yelling at staff, refusing to answer questions. She continued to escalate the situation despite multiple attempts at verbal de- escalation and would not cooperate with history whatsoever. EMS vitals showed BP 112/78, heart rate 78, satting 98% on room air. She did not allow vital signs here. On my evaluation she had no evidence of stridor, difficulty with phonation, or increased work of breathing. Medical screening exam shows no evidence of life threatening pathology. Patient continued to scream at myself and nursing staff demanding antibiotics. Despite repeated requests to lower her voice and assurances that some history and exam would be necessary to evaluate her condition, she continued to escalate, and was eventually asked to leave the premises with security. Jose M Disclaimer: Jose M Disclaimer: This electronic medical record was generated, in whole or in part, using a voice recognition dictation system. Departure Departure Impression: Primary Impression: Sore throat Disposition: LEFT AGAINST MEDICAL ADVICE Condition: STABLE CHARLEEN VEGA MD Oct 05, 2021 11:00
== END 2021-10-05 10:39 | disposition left against medical advice (07) ==
LOC: ER 10:18
DX: J02.9 Acute pharyngitis, unspecified (principal); J45.909 Unspecified asthma, uncomplicated; F17.200 Nicotine dependence, unspecified, uncomplicated
CPT/HCPCS: 99283